=== PATIENT | male | born 1995 | race African-American/Black ===

== ENCOUNTER 2019-04-25 16:48 | Emergency (ER) | payer OTHER ==
[~2019-04-25] VITALS: Ht 182.9 cm; Wt 75.6 kg
[2019-04-25 17:14] VITALS: BP 138/78
[2019-04-25] MEDS ORDERED: LIDOCAINE 1% PF 5 ML VIAL. INJ ONE (17:45)
--- NOTE | 2019-04-25 17:50 | PHYS DOC ---
Adult General Chief Complaint Chief Complaint: LACERATION/AVULSION HPI HPI Patient is a 24 year old [male] who presents with [laceration to left lip. Patient reports he was playing basketball today, when another player about him on the left side of his face. States he started bleeding right after that, has noticed a laceration. States his teeth feel intact, has no discomfort in his jaw or face. States no headache, no visual changes. Reports laceration occurred approximately one hour ago. Denies any altered level consciousness, denies any dizziness] Review of Systems Review of Systems Constitutional: Denies fever or chills [] Eyes: Denies change in visual acuity, redness, or eye pain [] HENT: Denies nasal congestion or sore throat [denies dental pain, denies discomfort to jaw] Musculoskeletal: Denies back pain or joint pain [] Integument: Denies rash reports laceration to left[] Neurologic: Denies headache, focal weakness or sensory changes [] Endocrine: Denies polyuria or polydipsia [] All other systems were reviewed and found to be within normal limits, except as documented in this note. Allergies Allergies Allergies Coded Allergies Type Severity Reaction Last Updated Verified No Known Drug Allergies 04/25/19 No Physical Exam Physical Exam Constitutional: Well developed, well nourished, no acute distress, non-toxic appearance. [] HENT: Normocephalic,oropharynx moist, no oral exudates, nose normal. approximately 4mm laceration noted to lip, superior to commisure, with separation of 4 mm intact skin and with 1.2 cm laceration noted interior to mouth on inner mucous membrane, no active bleeding[] Eyes: PERRLA, EOMI, conjunctiva normal, no discharge. [] Skin: Warm, dry, no erythema, no rash. [] Laceration noted to left lip. Extremities: No tenderness, no cyanosis, no clubbing, ROM intact, no edema. [] Neurologic: Alert and oriented X 3, normal motor function, normal sensory function, no focal deficits noted. [] Psychologic: Affect normal, judgement normal, mood normal. [] EKG EKG [] Radiology/Procedures Radiology/Procedures [] Course & Med Decision Making Course & Med Decision Making Pertinent Labs and Imaging studies reviewed. (See chart for details) [] Dragon Disclaimer Dragon Disclaimer This electronic medical record was generated, in whole or in part, using a voice recognition dictation system. Laceration Repair Lac Repair Indication: [Laceration] Procedure: The patient was placed in the appropriate position and anesthesia around the laceration was placed using 2 ml 1% lidocaine, infiltrated to the wound]. The area was then cleansed with gauze]. The laceration was closed with 5/0 vicryl dissolvable sutures, 1 placed to internal oral cavity at laceration, and 3 placed to external aspect of lip. Wound well approximated following procedure. Well tolerated by patient. The wound area was left open Total repaired wound length: [4mm + 1 cm. = 1.4 cm]. Other Items: [OTHER ITEMS] The patient tolerated the procedure [well]. Complications: [none]. Departure Departure Impression: Primary Impression: Laceration of lip without complication Disposition: 01 HOME, SELF-CARE Condition: STABLE Referrals: NO PCP (PCP) Patient Instructions: Laceration Care, Adult Additional Instructions: As we discussed, the stitches will dissolve on their own and they do not need to be taken out. Try to avoid opening your mouth widely for the next several days until year lacerations are healing. Follow-up with your primary care provider if any other problems. Ypur tetanus shot was updated today. Problem Qualifiers Primary Impression: Laceration of lip without complication Encounter type: initial encounter Qualified Codes: S01.511A - Laceration without foreign body of lip, initial encounter HILTON GOULD APRN Apr 25, 2019 17:50
[2019-04-25] MEDS ORDERED: DIPHTH,PERTUSS(ACELL),TET TOX 0.5 ML DISP.SYRIN. VAX IM ONE (18:00)
== END 2019-04-25 18:29 | disposition home or self-care (01) ==
LOC: ER 16:48
DX: S01.511A Laceration without foreign body of lip, initial encounter (principal); W52.XXXA Crushed, pushed or stepped on by crowd or human stampede, initial encounter; Y93.67 Activity, basketball; Y92.89 Other specified places as the place of occurrence of the external cause; Y99.8 Other external cause status
CPT/HCPCS: 12011; 90471; 90715; 99283